=== PATIENT | female | born 1930 | race Caucasian/White ===

== ENCOUNTER 2016-12-24 12:34 | Emergency (ER) | payer MEDICARE ==
[2016-12-24 13:12] LABS: BASOPHIL# 0.1 X 10^3uL (0.0-0.1); BASOPHILS 0.9 % (0.0-2.0); EOSINOPHILS 1.1 % (0.0-6.0); EOSINOPHILS# 0.1 X 10^3uL (0.0-0.4); HEMATOCRIT 27.5 % (36.0-48.0); HEMOGLOBIN 8.6 g/dL (12.0-16.0); LYMPHOCYTES 22.9 % (20.0-40.0); MEAN CELL VOLUME 94.5 fL (84.0-102.0); MEAN CORPUS. HGB CONCENTRATION 31.3 g/dL (32.0-36.0); MEAN CORPUSCULAR HEMOGLOBIN 29.6 pg (29.0-35.0); MONOCYTES 4.8 % (2.0-10.0); MONOCYTES# 0.4 X 10^3uL (0.2-1.0); NEUTROPHILS 70.3 % (54.0-75.0); NEUTROPHILS# 6.2 X 10^3uL (2.6-6.7); PLATELET COUNT 243 X 10^3uL (130-440); RED BLOOD COUNT 2.91 X 10^6uL (4.20-6.10); RED CELL DISTRIBUTION WIDTH 13.9 % (11.5-14.5); WHITE BLOOD COUNT 8.8 X 10^3uL (3.9-10.7)
[2016-12-24] MEDS ORDERED: ONDANSETRON HCL 4 MG/2 ML VIAL ONE (13:19)
[2016-12-24 13:23] LABS: A/G RATIO 1.4; ALBUMIN 4.2 g/dL (3.5-5.0); ALKALINE PHOSPHATASE 56 U/L (38-126); ALT 35 U/L (9-52); AST 28 U/L (14-36); BILIRUBIN, TOTAL 0.6 mg/dL (0.2-1.3); BLOOD UREA NITROGEN 13 mg/dL (7-17); CALCIUM 8.4 mg/dL (8.4-10.2); CHLORIDE 96 mmol/L (98-107); CREATININE 0.7 mg/dL (0.5-1.0); GLUCOSE 99 mg/dL (70-100); POTASSIUM 4.2 mmol/L (3.5-5.1); SODIUM 127 mmol/L (137-145); TOTAL PROTEIN 7.1 g/dL (6.3-8.2)
[2016-12-24] MEDS ORDERED: PANTOPRAZOLE 40 MG VIAL IV ONE (15:11)
--- NOTE | 2016-12-24 15:52 | ER NURSING DOCUMENTATION ---
Nurse's Notes [facility] Name:Mary Marie Age:86 yrs Sex:Female :1930 Arrival Date:12/24/2016 Time:12:34 Bed3 Private MD:Robert Villagomez Diagnosis:Upper GI Bleeding Presentation: 12/24 12:37 Presenting complaint: Patient states: Black, tarry stools for past several days, taking tg levaquin. Feeling weak, nauseated. Transition of care: patient was not received from another setting of care. 12:37 Acuity: TERRY 2 tg 12:37 Method Of Arrival: Private Vehicle tg Triage Assessment: 13:25 General: Appears in no apparent distress, Behavior is cooperative. Pain: Complains of tg pain in abdomen. Neuro: Level of Consciousness is awake, alert. Cardiovascular: Capillary refill < 3 seconds. Respiratory: Respiratory effort is even, unlabored. GI: Abdomen is non- distended Reports diarrhea, nausea, Denies constipation, vomiting. Derm: Skin is pink, warm & dry. Historical: - Allergies: PENICILLINS; SULFA (SULFONAMIDES); Ceftin; Tramadol-Acetaminophen; Statins; Lipitor; Celebrex; Zetia; Zocor; Vioxx; Tramadol HCl; Ceftin; Remicade; PENICILLINS; Niacin; Crestor; NSAIDS; - Home Meds: 1. calcitonin 2. Synthroid Oral 3. Neurontin Oral 4. entyvio 5. Aspirin Oral - PMHx: UTI; LUPUS; Dehydration - with Ketouria (October 29, 2015); Crohn's Disease (October 29, 2015); Cephalgia (October 29, 2015); ATRIAL FIB; CAD; HYPERTENSION; THYROID PROBLEM; UTI; hyponatremia; - Tetanus: < 10 years. - Ebola Screening: : Patient negative for fever greater than or equal to 101.5 degrees Fahrenheit, and additional compatible Ebola Virus Disease symptoms. Patient denies exposure to infectious person. Patient denies travel to an Ebola-affected area in the 21 days before illness onset. No symptoms or risks identified at this time. . - Immunization history: Flu Vaccine < 1 year. - Social history: Smoking status: Patient states was never smoker of tobacco. Screenin:55 Infectious Disease Risk Unable to Obtain. Abuse screen: Denies threats or abuse. Denies tg injuries from another. Nutritional screening: No deficits noted. Assessment: 15:39 Reassessment: Pt accepted for transfer at [facility], but [facility] transfer center asked us not to tg send patient until room is assigned. Awaiting room assignment. Vital Signs: 12:55 BP 171 / 82; Pulse 88; Resp 18; Temp 98.3(O); Pulse Ox 95% ; Weight 52.16 kg (R); tg Height 5 ft. 4 in. (162.56 cm) (R); Pain 2/10; 15:14 BP 170 / 74; Pulse 90; Resp 16; Pulse Ox 97% on R/A; tg 12:55 Body Mass Index 19.74 (52.16 kg, 162.56 cm) tg ED Course: 12:36 Patient arrived in ED. ama 12:36 Robert Villagomez MD is Private Physician. ama 12:37 Triage completed. tg 12:46 Rich Landry RN is Primary Nurse. tg 12:48 Lior Avila MD is Attending Physician. tl1 12:55 Valuables Remains with patient. tg 14:04 No apparent distress. Resting quietly. tg Administered Medications: 13:23 Drug: NS 0.9% 1000 ml; Route: IV; Rate: bolus; Site: right forearm; tg 15:13 Follow up: IV Status: Completed infusion; IV Intake: 1000ml tg 13:23 Drug: Zofran 4 mg; Route: IVP; Infused Over: 2 mins; Site: right forearm; tg 14:03 Follow up: Response: No adverse reaction; Nausea is decreased tg 15:14 Drug: NS 0.9% 100 ml, Protonix 80 mg; Route: IVPB; Site: right forearm; Delivery: tg [place] Tub[place]; 15:51 Follow up: IV Status: Completed infusion; IV Intake: 200ml tg Intake: 15:13 IV: 1000ml; Total: 1000ml. tg 15:51 IV: 200ml; Total: 1200ml. tg Outcome: 14:49 ER care complete, transfer ordered by . tl1 15:48 [facility] Time: December 24, 2016 at 15:00 Patient's face sheet was faxed to accepting facility. Face Sheet included patient's name, address, age, gender, contact information and insurance information. Patient will be transported by: [facility] ground. Report called to: [facility] Nurse and Physician Charting and Notes were sent to Accepting Facility. All tests and/or procedures with results, if applicable, were sent to accepting facility. 15:48 Condition: unchanged 15:48 Discharge Assessment: Patient awake and alert. 15:48 Instructed on need for transfer 15:51 Patient left the ED. tg Signatures: Rich Landry RN RN tg Averdick, Andrew, Reg Lior Argueta MD MD tl1
--- NOTE | 2016-12-24 15:52 | ER PHYSICIAN DOCUMENTATION ---
Physician Documentation [facility] Name:Mary Marie Age:86 yrs Sex:Female :1930 Arrival Date:12/24/2016 Time:12:34 Bed3 Private MD:Robert Villagomez ED, Tom Disposition: 12/24 15:26 Chart complete. tl1 Disposition: 12/24/16 14:49 Transfer ordered to [facility]. Diagnosis is Upper GI Bleeding. - Reason for transfer: Higher level of care. - Accepting physician is zenon. - Condition is Fair. - Problem is new. - Symptoms are unchanged. COBRA Form completed? Yes Transfer - Mode of Transportation Ambulance HPI: 12:40 This 86 yrs old Female presents to ER via Private Vehicle with complaints of tl1 Black/Tarry Stools. 12:40 The patient presents to the emergency department with rectal bleeding, a moderate tl1 amount, bright red blood with bowel movement, melena. Onset: The symptom(s)/episode began/occurred gradually, 4 day(s) ago. Abdominal pain: described as crampy, located in the left lower quadrant. Modifying factors: The symptoms are alleviated by nothing, the symptoms are aggravated by nothing. Associated signs and symptoms: Pertinent negatives: nausea but no vomiting. Severity of symptoms: At their worst the symptoms were moderate in the emergency department the symptoms are unchanged. The patient has experienced a previous episode, many years ago. She has a long h/o Crohn's disease . About 8 days ago she was diagnosed with a UTI in Dr Villagomez's office and treated with levaquin for 4 days. 4 days ago she noted the onset of one black stool a day and on day one noted some BRB. Since then she feels generally somewhat weak and occasionally lightheaded. She has had similar episodes in the past with her Crohn's, and came to the ED largely at the insistence of her daughter, after Dr Schilling's office suggested yesterday that she come to the ED today if her symptoms persisted, which they have.. Historical: - Allergies: PENICILLINS; SULFA (SULFONAMIDES); Ceftin; Tramadol-Acetaminophen; Statins; Lipitor; Celebrex; Zetia; Zocor; Vioxx; Tramadol HCl; Ceftin; Remicade; PENICILLINS; Niacin; Crestor; NSAIDS; - Home Meds: 1. calcitonin 2. Synthroid Oral 3. Neurontin Oral 4. entyvio 5. Aspirin Oral - PMHx: UTI; LUPUS; Dehydration - with Ketouria (October 29, 2015); Crohn's Disease (October 29, 2015); Cephalgia (October 29, 2015); ATRIAL FIB; CAD; HYPERTENSION; THYROID PROBLEM; UTI; hyponatremia; - Tetanus: < 10 years. - Ebola Screening: : Patient negative for fever greater than or equal to 101.5 degrees Fahrenheit, and additional compatible Ebola Virus Disease symptoms. Patient denies exposure to infectious person. Patient denies travel to an Ebola-affected area in the 21 days before illness onset. No symptoms or risks identified at this time. . - Immunization history: Flu Vaccine < 1 year. - Social history: Smoking status: Patient states was never smoker of tobacco. ROS: 15:16 Abdomen/GI: Positive for nausea, black/tarry stool, rectal bleeding, Negative for tl1 vomiting, diarrhea, constipation. 15:16 Neuro: Positive for dizziness, weakness. 15:16 All other systems are negative. Exam: 15:17 Constitutional: This is a well developed, well nourished patient who is awake, alert, tl1 and in no acute distress. 15:17 Head/Face: Normocephalic, atraumatic. tl1 15:17 Eyes: Periorbital structures: appear normal, Extraocular movements: no acute changes, Conjunctiva: pale. 15:17 Neck: ROM/movement: is normal. 15:17 Cardiovascular: Rate: normal, Rhythm: regular, Heart sounds: normal. 15:17 Respiratory: Respirations: normal, Breath sounds: are normal. 15:17 Abdomen/GI: Inspection: abdomen appears normal, Bowel sounds: active, Palpation: soft, mild abdominal tenderness, in the right lower quadrant and left lower quadrant, Rectal exam: the exam is deferred. 15:17 Back: CVA tenderness, is absent. 15:17 Musculoskeletal/extremity: Exam is negative for acute changes. 15:17 Skin: Exam negative for acute changes. 15:17 Neuro: grossly normal. Vital Signs: 12:55 BP 171 / 82; Pulse 88; Resp 18; Temp 98.3(O); Pulse Ox 95% ; Weight 52.16 kg (R); tg Height 5 ft. 4 in. (162.56 cm) (R); Pain 2/10; 15:14 BP 170 / 74; Pulse 90; Resp 16; Pulse Ox 97% on R/A; tg 12:55 Body Mass Index 19.74 (52.16 kg, 162.56 cm) tg MDM: 12:48 Patient medically screened. tl1 14:50 Physician consultation: Evgeny Schilling MD was called at 14:30, was contacted at 14:40, tl1 regarding patient's condition, after a discussion of the case, a recommendation for transfer for higher level of care is made. Other consultation: Facility A, was alerted at 14:44, has evaluated patient and will arrange transfer. ED course: Hemodynamically stable with an unchanged physical exam.. 15:19 Differential diagnosis: UGI, LGI bleed. Data reviewed: vital signs, nurses notes, old tl1 medical records, lab test result(s), and as a result, I will *Transfer Patient. Data interpreted: panel monitor: Pulse oximetry:. Counseling: I had a detailed discussion with the patient and/or guardian regarding: the historical points, exam findings, and any diagnostic results supporting the discharge/admit diagnosis, lab results, the need to transfer to another facility. Other consultation: Facility A, Dr Madhuri Barraza. 12/24 13:14 Order name: CBC AUTO DIF, MDIF/RMOR IF IND; Complete Time: 14:27 EDMS 12/24 14:26 Interpretation: WHITE BLOOD COUNT 8.8; HEMOGLOBIN 8.6; HEMATOCRIT 27.5; PLATELET COUNT tl1 243. 12/24 13:24 Order name: COMPREHENSIVE METABOLIC PANEL; Complete Time: 14:27 EDMS 18 14:27 Interpretation: SODIUM 127; POTASSIUM 4.2; CHLORIDE 96; CARBON DIOXIDE 21; GLUCOSE 99; tl1 BLOOD UREA NITROGEN 13; CREATININE 0.7; CALCIUM 8.4; ALT 35; ALBUMIN 4.2; ALKALINE PHOSPHATASE 56; BILIRUBIN, TOTAL 0.6. Dispensed Medications: 13:23 Drug: NS 0.9% 1000 ml; Route: IV; Rate: bolus; Site: right forearm; tg 15:13 Follow up: IV Status: Completed infusion; IV Intake: 1000ml tg 13:23 Drug: Zofran 4 mg; Route: IVP; Infused Over: 2 mins; Site: right forearm; tg 14:03 Follow up: Response: No adverse reaction; Nausea is decreased tg 15:14 Drug: NS 0.9% 100 ml, Protonix 80 mg; Route: IVPB; Site: right forearm; Delivery: tg [place] Tubing; 15:51 Follow up: IV Status: Completed infusion; IV Intake: 200ml tg Signatures: Rich Landry RN RN tg Lior Avila MD MD tl1
== END 2016-12-24 15:52 | disposition short-term general hospital (02) ==
LOC: ER 12:34
DX: K92.1 Melena (principal); R11.0 Nausea; R42 Dizziness and giddiness; R53.1 Weakness; D62 Acute posthemorrhagic anemia; K50.90 Crohn's disease, unspecified, without complications; I10 Essential (primary) hypertension; I48.91 Unspecified atrial fibrillation; I25.10 Atherosclerotic heart disease of native coronary artery without angina pectoris; Z79.899 Other long term (current) drug therapy; Z79.82 Long term (current) use of aspirin; Z74.3 Need for continuous supervision
CPT/HCPCS: 80053; 85025; 96361; 96365; 96375; 99284; 99285; J2405